=== PATIENT | male | born 1945 | race Caucasian/White ===

== ENCOUNTER 2020-09-12 07:25 | Day surgery (SDC) | payer MEDICARE, OTHER ==
[2020-09-12] MEDS ORDERED: Lactated Ringers 1,000 ML IV ONE (07:30)
[2020-09-12] MEDS ORDERED: TETRACAINE 0.5% STERI-UNIT SOL OP ONE ×2 (08:00)
[2020-09-12] MEDS ORDERED: Lactated Ringers 1,000 ML IV SCH (08:00)
[2020-09-12] MEDS ORDERED: BETADINE 5% OPHTHALMIC 30 ML OP ONE (08:00)
[2020-09-12] MEDS ORDERED: cefUROXime sodium 0.005 GM in Sodium Chloride Flush 30 ML*** 0.5 ML IJ SCH (08:00)
[2020-09-12] MEDS ORDERED: Ak-Dilate OPHTHALMIC*** 1.065 ML, Cyclogyl 1% OPHTH SOL 5 ML 1.065 ML, GATIFLOXACIN 0.5... OP ONE ×4 (08:00)
[2020-09-12] MEDS ORDERED: NON-FORMULARY ITEM OP ONE (08:00)
[2020-09-12] MEDS ORDERED: LIDOCAINE HCL 1% 50 MG/5 ML VL PF IJ ONE (09:00)
[2020-09-12] MEDS ORDERED: Epinephrine Preservative Free 1 MG/ML INTRAOP ONE (09:00)
[2020-09-12] MEDS ORDERED: Zofran 4 MG/2 ML VIAL IV PRN ×2 (09:00→12:45)
[2020-09-12] MEDS ORDERED: ACETAZOLAMIDE 250 MG TABLET PO ONE ×2 (09:00→12:45)
[2020-09-12] MEDS ORDERED: ROBINUL ONE (09:24)
[2020-09-12] MEDS ORDERED: DIPRIVAN 200 MG/20 ML IV ONE ×2 (09:24→10:03)
[2020-09-12 10:57] VITALS: O2SAT 97
[2020-09-12 12:06] VITALS: BP 121/79; PULSE 73
== END 2020-09-12 11:15 | disposition home or self-care (01) ==
LOC: SDC 07:25
PROVIDERS: ATTEND Ophthalmology
DX: H25.812 Combined forms of age-related cataract, left eye (principal); I10 Essential (primary) hypertension; Z79.899 Other long term (current) drug therapy
CPT/HCPCS: 99100; C1780; J0171; J2001; J2704; A9270-GY

== ENCOUNTER 2020-10-17 08:00 | Day surgery (SDC) | payer MEDICARE, OTHER ==
[~2020-10-17 08:00] MED LIST: Ak-Dilate OPHTHALMIC*** 1.065 ML, Cyclogyl 1% OPHTH SOL 5 ML 1.065 ML, GATIFLOXACIN 0.5... OP ONE; BETADINE 5% OPHTHALMIC 30 ML OP ONE; Lactated Ringers 1,000 ML IV SCH; NON-FORMULARY ITEM OP ONE; TETRACAINE 0.5% STERI-UNIT SOL OP ONE; cefUROXime sodium 0.005 GM in Sodium Chloride Flush 30 ML*** 0.5 ML IJ SCH
[2020-10-17] MEDS ORDERED: Lactated Ringers 1,000 ML IV ONE (08:42)
[2020-10-17] MEDS ORDERED: ACETAZOLAMIDE 250 MG TABLET PO ONE (09:00)
[2020-10-17] MEDS ORDERED: Zofran 4 MG/2 ML VIAL IV PRN (09:00)
[2020-10-17] MEDS ORDERED: DIPRIVAN 200 MG/20 ML IV ONE ×3 (09:47→10:15)
[2020-10-17] MEDS ORDERED: Epinephrine Preservative Free 1 MG/ML INTRAOP ONE (10:00)
[2020-10-17] MEDS ORDERED: LIDOCAINE HCL 1% 50 MG/5 ML VL PF IJ ONE (10:00)
[2020-10-17 11:23] VITALS: BP 128/79; PULSE 66; O2SAT 95
== END 2020-10-17 10:25 | disposition home or self-care (01) ==
LOC: SDC 08:00
PROVIDERS: ATTEND Ophthalmology
DX: H25.811 Combined forms of age-related cataract, right eye (principal)
CPT/HCPCS: 99100; C1780; J0171; J2001; J2704; A9270-GY

== ENCOUNTER 2024-10-05 06:00 | Day surgery (SDC) | payer MEDICARE ==
[2024-10-05] MEDS: Lactated Ringers 1,000 ML IV SCH (06:14)
[2024-10-05 06:59] LABS: ANION GAP 16.3 MEQ/L (5-15); Calcium 9.5 mg/dL (8.4-10.2); Creatinine 1 1.22 mg/dL (0.66-1.25); EST GLOMERULAR FILTRATION RATE 60.7 ML/MIN; Potassium 4.2 mmol/L (3.5-5.1)
[2024-10-05] MEDS ORDERED: Xylocaine-Mpf 2% 5 Ml Vial ONE (07:31)
[2024-10-05] MEDS ORDERED: propofoL IV ONE (07:31)
[2024-10-05] MEDS ORDERED: PHENYLEPHRINE HCL ONE (07:45)
[2024-10-05 08:12] VITALS: PULSE 67; RESP 18; TEMP 97.9
[2024-10-05 08:23] VITALS: BP 108/70; O2SAT 97
--- NOTE | 2024-10-06 10:33 | OP ---
SURGERY DATE/TIME: 10/05/2024 [id number] PREOPERATIVE DIAGNOSIS: Rectal bleeding. POSTOPERATIVE DIAGNOSIS: Ulcerative colitis to 35 cm depth of insertion. PROCEDURE: Colonoscopy with cold forceps biopsies. SURGEON: Frederick Gold MD ANESTHESIA: Medication given by the anesthesia department. INDICATIONS: The patient is a 79-year-old white male patient presenting now for complaints of explosive-type diarrhea. He has been noting some blood in the stool as well. The patient reports having had a previous colonoscopy in 2010 that was normal. The patient was felt to need to have endoscopic evaluation. He was apprised of the risks of the procedure including risks of perforation, phlebitis, untoward reaction to medication, bleeding, and missed lesions. The patient verbalized his understanding and desired to have the procedure performed. DESCRIPTION OF PROCEDURE AND FINDINGS: The patient was given medication by the anesthesia department. He had continuous pulse oximetry, ECG monitoring, and intermittent blood pressure monitoring during the examination. He was placed in left lateral decubitus position. Digital rectal examination was performed and revealed normal anal sphincter tone, external and internal hemorrhoids were noted, there were no masses, and the prostate was felt to be normal. The flexible Olympus videocolonoscope was used to intubate the rectum. A view of the colon was developed sequentially to the cecum. Upon insertion and withdrawal, there was noted colitis from the anal verge to approximately 35 cm depth of insertion. Biopsies were obtained in this area to confirm the underlying colitis and probability of ulcerative colitis. The patient tolerated the procedure well and was sent back to outpatient recovery in good condition. The prep was noted to be good.
== END 2024-10-05 08:30 | disposition home or self-care (01) ==
LOC: SDC 06:00
PROVIDERS: ATTEND Family Medicine
DX: K51.90 Ulcerative colitis, unspecified, without complications (principal); K62.5 Hemorrhage of anus and rectum; K62.89 Other specified diseases of anus and rectum; K64.4 Residual hemorrhoidal skin tags; K64.8 Other hemorrhoids; I10 Essential (primary) hypertension
CPT/HCPCS: 36415; 80048; 93005; 99100; J2371; J2704